=== PATIENT | male | born 1970 | race Two or more races ===

== ENCOUNTER 2018-12-24 18:59 | Emergency (ER) | payer SELFPAY ==
[~2018-12-24] VITALS: Ht 167.6 cm; Wt 63.5 kg
[2018-12-24] MEDS ORDERED: NKM (19:00)
[2018-12-24 19:10] VITALS: BP 132/89
[2018-12-24 20:09] LABS: HEMATOCRIT 41.6 % (42.0-52.0); HEMOGLOBIN 14.1 G/DL (14.2-18.0); MEAN CORPUSCULAR VOLUME 93 FL (80-99); PLATELET COUNT 125 K/UL (150-450); RED BLOOD COUNT 4.49 M/UL (4.70-6.10); RED CELL DISTRIBUTION WIDTH 11.5 % (11.6-14.8); WHITE BLOOD COUNT 3.2 K/UL (4.8-10.8)
[2018-12-24 20:16] LABS: ANION GAP 11 mmol/L (5-15); BLOOD UREA NITROGEN 11 mg/dL (7-18); CALCIUM 8.4 MG/DL (8.5-10.1); CARBON DIOXIDE 27 MMOL/L (21-32); CHLORIDE 106 MMOL/L (98-107); CREATININE 0.7 MG/DL (0.55-1.30); POTASSIUM 3.8 MMOL/L (3.5-5.1); SODIUM 144 MMOL/L (136-145)
[2018-12-24 20:21] LABS: ALANINE AMINOTRANSFERASE 66 U/L (12-78); ALBUMIN 4.1 G/DL (3.4-5.0); ALBUMIN/GLOBULIN RATIO 0.9 (1.0-2.7); ALKALINE PHOSPHATASE 102 U/L (46-116); ASPARTATE AMINO TRANSFERASE 89 U/L (15-37); BILIRUBIN,TOTAL 0.2 MG/DL (0.2-1.0)
--- NOTE | 2018-12-24 22:18 | Emergency Room Report ---
History of Present Illness General Chief Complaint: Alcohol Intoxication Source: Patient (Marck Thomson MD) Present Illness HPI 48-year-old male brought in by EMS for evaluation. Reported EtOH. Found down today. Bystanders called 911. Patient is unable to provide any history at this time. Unclear whether patient his head or sustain other injuries. No reported pain. No respiratory distress. No chest pain. No other aggravating relieving factors. No other associated symptoms (Marck Thomson MD) Allergies: Coded Allergies: No Known Allergies (Unverified , 12/24/18) Patient History Past Medical History: none Past Surgical History: none Pertinent Family History: none Social History: Reports: alcohol use; Denies: smoking, drug use Immunizations: UTD Reviewed Nursing Documentation: PMH: Agreed; PSxH: Agreed (Marck Thomson MD) Nursing Documentation-PMH Past Medical History: No Stated History (Marck Thomson MD) Review of Systems All Other Systems: limited (Marck Thomson MD) Physical Exam Vital Signs Date Time Temp Pulse Resp B/P (MAP) Pulse Ox O2 Delivery O2 Flow Rate FiO2 12/24/18 18:57 97.5 85 18 135/92 98 Room Air Sp02 EP Interpretation: reviewed, normal General Appearance: no apparent distress, lethargic Head: normocephalic Eyes: bilateral eye normal inspection, bilateral eye PERRL ENT: normal ENT inspection Neck: normal inspection Respiratory: chest non-tender, lungs clear, normal breath sounds, speaking full sentences Cardiovascular #1: regular rate, rhythm, no edema Gastrointestinal: normal bowel sounds, non tender, soft, non-distended, no guarding, no rebound Rectal: deferred Genitourinary: no CVA tenderness Musculoskeletal: normal inspection Neurologic: other - intoxicated Psychiatric: other - intoxicated Skin: normal inspection Lymphatic: normal inspection (Marck Thomson MD) Medical Decision Making Diagnostic Impression: Primary Impression: Acute alcoholic intoxication Qualified Codes: F10.921 - Alcohol use, unspecified with intoxication delirium ER Course Hospital Course 48-year-old M presents to ED with altered mental status. found on streets Differential diagnoses include: Psychosis, EtOH, drug abuse Clinical course patient placed on stretcher. On monitoring engineer. After initial history and physical ordered labs, IV fluids, CT brain. Labs reviewed-electrolytes okay, no leukocytosis, hemoglobin/hematocrit stable, ETOH > 400 CT brain shows no acute pathology Patient allowed to rest. Protecting airway. Given IV fluids. Stable vitals during ED course. Patient is now alert oriented 3. Walking with steady gait. Safe for discharge close outpatient follow-up. We'll provide referrals i. I feel this is a highly complex case requiring extensive working including EKG/Rhythm strip, Xray/CT/US, Blood/urine lab work, repeat exams while in ED, and administration of strong opiates/narcotics for pain control, admission to hospital or close patient follow up. Diagnosis -alcohol intoxication Stable and discharged to home. Followup with PMD. Return to ED if symptoms recur or worsen Labs Test 12/24/18 19:37 White Blood Count 3.2 K/UL (4.8-10.8) Red Blood Count 4.49 M/UL (4.70-6.10) Hemoglobin 14.1 G/DL (14.2-18.0) Hematocrit 41.6 % (42.0-52.0) Mean Corpuscular Volume 93 FL (80-99) Mean Corpuscular Hemoglobin 31.4 PG (27.0-31.0) Mean Corpuscular Hemoglobin Concent 33.9 G/DL (32.0-36.0) Red Cell Distribution Width 11.5 % (11.6-14.8) Platelet Count 125 K/UL (150-450) Mean Platelet Volume 6.8 FL (6.5-10.1) Neutrophils (%) (Auto) % (45.0-75.0) Lymphocytes (%) (Auto) % (20.0-45.0) Monocytes (%) (Auto) % (1.0-10.0) Eosinophils (%) (Auto) % (0.0-3.0) Basophils (%) (Auto) % (0.0-2.0) Sodium Level 144 MMOL/L (136-145) Potassium Level 3.8 MMOL/L (3.5-5.1) Chloride Level 106 MMOL/L (98-107) Carbon Dioxide Level 27 MMOL/L (21-32) Anion Gap 11 mmol/L (5-15) Blood Urea Nitrogen 11 mg/dL (7-18) Creatinine 0.7 MG/DL (0.55-1.30) Estimat Glomerular Filtration Rate > 60 mL/min (>60) Glucose Level 96 MG/DL (74-106) Calcium Level 8.4 MG/DL (8.5-10.1) Total Bilirubin 0.2 MG/DL (0.2-1.0) Aspartate Amino Transf (AST/SGOT) 89 U/L (15-37) Alanine Aminotransferase (ALT/SGPT) 66 U/L (12-78) Alkaline Phosphatase 102 U/L (46-116) Total Protein 8.5 G/DL (6.4-8.2) Albumin 4.1 G/DL (3.4-5.0) Globulin 4.4 g/dL Albumin/Globulin Ratio 0.9 (1.0-2.7) Salicylates Level 1.6 ug/mL (2.8-20) Acetaminophen Level < 2 MCG/ML (10-30) Serum Alcohol 487 mg/dL (Marck Thomson MD) ER Course Please see above notes. Patient states she's not suicidal although drinks beer every day. He was in a clots on [place] by [place]. He felt weaker than usual today and had some unusual involuntary movements of his muscles. He didn't lose consciousness during that time. He's never been to any 12-step program or regular physician recently. He is unemployed but does live with a friend at this time. Patient is slightly tremulous however purposeful. Patient is not suicidal at this time. He's purposeful. He was given referrals to both a primary care physician in the [facility] and seen in clinic and also given the specific number for Cymro-speaking Alcoholics Anonymous. The patient was advised that if he is not doing well that he is welcome to return here however it would be important for him to find a primary physician and again this have a clinic and stated clinical or recommended the patient. Patient stable for outpatient observation and treatment. (Ronald Pérez MD) CT/MRI/US Diagnostic Results CT/MRI/US Diagnostic Results : Imaging Test Ordered: CT Head Impression no acute process (Marck Thomson MD) Last Vital Signs Date Time Temp Pulse Resp B/P (MAP) Pulse Ox O2 Delivery O2 Flow Rate FiO2 12/24/18 19:10 97.8 83 20 132/89 97 Room Air Status: improved (Marck Thomson MD) Last Vital Signs Date Time Temp Pulse Resp B/P (MAP) Pulse Ox O2 Delivery O2 Flow Rate FiO2 12/24/18 19:10 97.8 83 20 132/89 97 Room Air Status: improved (Ronald Pérez MD) Disposition: HOME, SELF-CARE Condition: Unknown Referrals: NOT CHOSEN IPA/,REFERRING (PCP) Marck Thomson MD Dec 24, 2018 22:18 Ronald Pérez MD Dec 25, 2018 05:25
[2018-12-25 05:41] VITALS: BP 131/83
== END 2018-12-25 05:41 | disposition home or self-care (01) ==
LOC: EDBD 18:59 → EMR 20:00
DX: F10.921 Alcohol use, unspecified with intoxication delirium (principal)
CPT/HCPCS: 36415; 70450; 80053; 85025; 96360; 99284; G0480; 80329